=== PATIENT | female | born 1975 | race Caucasian/White ===

== ENCOUNTER 2019-04-06 08:23 | Outpatient (REF) | payer BC, SELFPAY ==
[2019-04-06 21:04] LABS: Calculated LDL 103 mg/dL (<100); Cholesterol 164 mg/dL (<200); Glucose 94 mg/dL (74-106); HDL Cholesterol 52 mg/dL (40-60); Triglyceride 47 mg/dL (<150)
== END 2019-04-06 08:43 ==
LOC: NCHCN 08:23
PROVIDERS: PCP Physician Assistant Medical; Visit Provider Nurse Practitioner Family
DX: Z13.1 Encounter for screening for diabetes mellitus (principal); Z13.220 Encounter for screening for lipoid disorders
CPT/HCPCS: 80061; 82947

== ENCOUNTER 2019-04-25 09:39 | Outpatient (REF) | payer BC, SELFPAY ==
--- NOTE | 2019-04-25 09:25 | PAPFT_PTH ---
PATIENT: Kathy Kong LOC: [facility]#:[id number] AGE/SX: 43/F ROOM: RE04/25/[address]: Loretta Gallegos : 1975 BED: DIS: 04/25/2019 SPEC #: [id number] RECD: 04/26/19 12:53 STATUS: SIOBHAN REJacinto #: [id number] MAURY: 04/25/19 09:[address]: Loretta Gallegos DEPT: [facility] Cytology RECD BY: Marzena Day ENTERED: 04/26/19 12:53 SP TYPE: PAPFT OTHR DR: Atif Barber Tissues: 1 - CX/ENDOCX FOR PAP SMEARS Procedures: PAP THIN PREP/UVM Screening HPV DNA PROBE Comments: [id number]
== END 2019-04-25 09:59 ==
LOC: NCHCN 09:39
PROVIDERS: PCP Internal Medicine; Visit Provider Nurse Practitioner Family
DX: Z12.4 Encounter for screening for malignant neoplasm of cervix (principal); Z01.419 Encounter for gynecological examination (general) (routine) without abnormal findings; Z11.51 Encounter for screening for human papillomavirus (HPV)
CPT/HCPCS: 88142; 87624

== ENCOUNTER 2020-12-17 13:21 | Outpatient (REF) | payer BC, SELFPAY ==
[2020-12-17 19:51] LABS: Bilirubin Negative (Negative); Blood Trace-intact (Negative); Clarity Clear (Clear); Glucose Negative (Negative); Ketones Negative (Negative); Leukocyte Esterase Negative (Negative); Nitrite Negative (Negative); Urobilinogen 0.2 EU/dL (Up TO 0.2)
[2020-12-17 20:01] LABS: Bacteria Negative HPF (Negative); C & S Indicated? No; Crystals Negative HPF (Negative); Epithelial Cells Few HPF (Negative); Mucus Negative (Negative); RBC 0-2 HPF (0-2); WBC Negative HPF (0-5)
== END 2020-12-17 13:22 | disposition home or self-care (01) ==
LOC: NCHCN 13:21
PROVIDERS: PCP Internal Medicine; Visit Provider Nurse Practitioner Family
DX: R30.0 Dysuria (principal); N89.8 Other specified noninflammatory disorders of vagina
CPT/HCPCS: 81003; 81015; 87480; 87510; 87660

== ENCOUNTER 2022-07-04 08:17 | Day surgery (SDC) | payer BC, SELFPAY ==
--- NOTE | 2022-07-03 19:58 | PDOC.DSDIS_ITS ---
Date of service: 07/04/22 Time of Service: 08:47 Discharge Plan Disposition Patient Disposition: Home Condition: Good Discharge Details Reason For Visit: colon scope/colon cancer screening Attending Provider: Opal Godinez Primary Care Provider: Atif Barber Home Meds and New Rx's Prescriptions: Continued lorazepam 0.5 mg tablet 0.5 mg PO BID PRN Discontinued polyethylene glycol 3350 17 gram/dose powder 238 g PO ONCE Qty: 238 0RF Rx Instructions: take per colonoscopy instructions bisacodyl [Dulcolax (bisacodyl)] 5 mg tablet,delayed release (DR/EC) 5 mg PO ONCE Qty: 4 0RF Rx Instructions: take per colonoscopy instructions Discharge Instructions Additional Instructions: DSU Colonoscopy Post- Op Instructions Instructions for Everyone who is given Anesthesia: For your safety, please do the following for the next twenty-four (24) hours: *Do Not operate a motor vehicle (car, truck, motorcycle, etc.) *Do Not drink alcoholic beverages or use any recreational drugs for the first 24 hours or while taking pain medications. The medications in your body may have a reaction that can be dangerous. *Do Not make any important decisions or sign any important papers. Findings: minor diveritcula otherwise normal Follow up: Repeat in 10 yrs time 1. No lifting over 20 pounds or strenuous activity for the first 24 hours after your procedure. After 24 hours there are no restrictions on your activity but you may feel fatigued for a few days. 2. After you arrive home you may have a light meal and return to your normal diet as you can tolerate it without feeling sick to your stomach. 3. You may have a bloated, gaseous feeling in your belly (abdomen) after a colonoscopy. Passing gas and belching will help. Walking or lying down on your left side with your knees flexed may relieve the discomfort. Call the office at [phone] (Office) or [phone] (Hospital) right away if you notice any of the following: a.Vomiting of blood or ?coffee ground stools?. b.Rectal bleeding 1Tbsp, blood clots or continuous bleeding. c.Severe belly (abdominal) pain. d.A hard distended belly (abdomen) and an inability to pass gas. 4. Please don?t expect to have a normal BM (bowel movement) for 2-3 days after your procedure. 5. If there are questions regarding the findings of your procedure, please contact your doctor 6. If you are unable to contact your doctor with a problem, contact the hospital at [phone]. 7. Continue all your regular medications unless directed otherwise. I understand the above instructions and have no questions. Signature of Patient or Adult Escort Name of Responsible Adult Escort Signature of Nurse Date/Time Activity:: see above Diet:: see above Discharge Orders Discharge Orders: Discharge Order (Routine); Ordered 07/04/22 Ordered By: Opal Godinez DS: Diagnosis Discharge Diagnosis (1) S/P lumbar microdiscectomy: (2) Screening for malignant neoplasm of colon performed: Status: Acute Asessment and Plan: The patient is seen and examined after their colonoscopy.? The patient has been able to pass gas.? They are not having abdominal pain.? They have been able to tolerate liquids and a snack.? They do not have any nausea or vomiting.? They are not having any chest pain or shortness of breath.??? They are not having any rectal bleeding..? Their vital signs have been stable-see nursing notes. We discussed findings during their colonoscopy, and any biopsies that were done/polyps that were removed. The patient will be sent a letter with any biopsy results, and when to repeat the colonoscopy.-see discharge instructions. Patient was given explicit instructions to follow-up regarding colonoscopy-refer to discharge instructions.? We reviewed resumption of medications. Patient verbalized understanding and discharged in stable and satisfactory condition- See nursing notes. (3) Diverticula of colon: Status: Acute
--- NOTE | 2022-07-04 08:17 | W.ANESPRE ---
General Info Date of Service Date Performed: 07/04/22 Height: 5 ft 5 in Weight: 68.663 kg Body Mass Index (BMI): 25.2 Surgical Procedure: Operation Date: 07/04/22 09:20 Proposed Procedure Side Surgeon p Colonoscopy Opal Godinez DO Meds Allergies and Home Medications Allergies Allergy/AdvReac Type Severity Reaction Status Date / Time codeine Allergy Severe Verified 07/04/22 08:34 Home Medication Medication Instructions Recorded lorazepam 0.5 mg tablet 0.5 mg PO BID PRN 11/27/21 Current Visit Medications: Current Medications Generic Name Dose Route Start Last Admin Trade Name Freq PRN Reason Stop Dose Admin Hyoscyamine Sulfate 0.125 mg 07/04/22 07:57 Hyoscyamine 0.125 Mg Sl/Oral/Chew SL DIRECTED PRN Ringer's Solution 1,000 mls @ 80 mls/hr 07/04/22 06:00 IV 07/04/22 23:59 INFUSION TASH IV Miscellaneous Supplies 1 each 07/04/22 06:00 Iv Access IV 07/04/22 23:59 DIRECTED TASH Ondansetron HCl 4 mg 07/04/22 07:57 Ondansetron 4 Mg/2 Ml Vial IVP Q4H PRN PRN Nausea / Vomiting Sodium Chloride 0 ml 07/04/22 06:00 Normal Saline Flush 10 Ml Syr IV 07/04/22 23:59 PRN PRN Sodium Chloride 0 ml 07/04/22 06:00 Normal Saline 10 Ml Vial IJ 07/04/22 23:59 DIRECTED PRN Sterile Water 0 ml 07/04/22 06:00 Water,Injection,Sterile 10 Ml Vial IJ 07/04/22 23:59 DIRECTED PRN PFSH Active Problems Active Problems: Problem Status Onset Code Screening for malignant neoplasm of colon performed Z12.11 Anxiety F41.9 Dysuria R30.0 Hearing loss H91.90 Medical History Medical History (Updated 07/03/22 @ 19:59 by Opal Godinez DO) Family history of breast cancer Hypoglycemia Premenstrual syndrome Surgical History Surgical History (Updated 07/03/22 @ 19:59 by Opal Godinez DO) S/P lumbar microdiscectomy 03/24 at Vital Signs and Lab Results Lab Results Blood Type / Crossmatch: No Data to Display Complete Blood Count: No Data to Display Complete Metabolic Panel: No Data to Display Liver Function Panel: No Data to Display Coagulation Panel: No Data to Display Cardiac Panel: No Data to Display Arterial Blood Gas: No Data to Display Venous Blood Gas: No Data to Display Pancreas Panel: No Data to Display Thyroid Panel: No Data to Display Infectious Disease: No Data to Display Blood Cultures: No Data to Display Toxicology Panel: No Data to Display Panel: No Data to Display Anesthesia Assessment and Plan Anesthesia History Personal History: No History of Anesthesia Complications Family History: No Family History of Anesthesia Complications Exercise Tolerance Exercise Tolerance: Metabolic Equivalents>4 Pertinent Negatives Pertinent Negatives: No Symptoms of GERD, No Major Cardiovascular Symptoms or Complaints, No Major Pulmonary Symptoms or Complaints and No History of CVA/TIA Cardiac & Pulmonary Exam Cardiac Exam: Normal S1/S2 Heart Sounds Pulmonary Exam: Clear Bilateral Breath Sounds Implantable Cardiac Device Does patient have a Pacemaker or an ICD?: No Airway Exam Known Difficult Airway: No Mallampati Class: 2 Mouth Opening: Normal (> 3cm) Thyromental Distance: Greater than 3 cm Neck Range of Motion: Full ROM Neck Circumference: Normal Teeth Condition: Normal Dentition ASA Classification ASA Score: ASA 2 Emergency Case?: No NPO Status NPO Status: NPO Clears >2 hours, Solids >8 hours Status Status: Negative HCG Anesthesia Plan Resuscitation Status: Full Code Anesthesia Technique: General Anesthesia Airway Planned: Natural Airway Monitors Used: Standard Monitors
[2022-07-04 08:27] VITALS: BP 127/78; PULSE 79; RESP 17; TEMP 36.6; O2SAT 99
[2022-07-04] MEDS: Lactated Ringers 1,000 ML 80 ML IV (08:43)
--- NOTE | 2022-07-04 08:47 | W.COLOREPORT ---
Date of service: 07/04/22 Time of Service: 08:47 Colonoscopy Report Date of procedure: 07/04/22 Pre-op diagnosis general: CRC screening Post-op diagnosis procedure note: other (Very few small diverticula confined to the sigmoid colon) Surgeon: Opal Goidnez Anesthesia Type: General:No Airway Estimated blood loss (mL): 0 Pathology: none sent Complications: None Disposition: same day Prep: Miralax/Dulcolax Retraction Time: 22 Procedure Description: After informed consent was obtained the patient was taken to the procedure room and placed in a left decubitous position. Monitors were applied and a time out was done. The patients name, date of , procedure, allergies to medications and metal in their body was reviewed. The patient was then sedated. Once sedated and comfortable a rectal exam was done. External exam was normal. Internal exam revealed a normal sphincter tone and no palpable masses. The scope was then introduced and retrofelexed. No internal hemorrhoids were identified. The scope was then advanced to the cecum without BBPS 2 in all segments for total of 6 difficulty. The TI and appendiceal orifice were identified. The prep was . The scope was then slowly retracted over 22 minutes back into the rectum. There are no polyps visualized today. There are a few small scattered diverticula in the sigmoid colon. There is no signs of active bleeding or infection. The mucosa is pink and healthy with a normal vascular pattern. The scope was removed and the patient was woken up and taken back to Same day surgery in stable condition. The patient tolerated the procedure well and there were no immediate complications. Follow up: The patient should follow up in 10 years unless they develop changes in bowel habits or other new gastrointestinal complaints.
[2022-07-04 09:08] VITALS: BMI 25.2
[2022-07-04 09:34] VITALS: BP 121/76; PULSE 62; RESP 16; TEMP 36.7; O2SAT 99
[2022-07-04 10:01] VITALS: BP 120/74; PULSE 57; RESP 16; TEMP 36.5; O2SAT 100
--- NOTE | 2022-07-04 10:23 | W.ANESPOSTOP ---
Postoperative Evaluation Date, Time and Location Date Performed: 07/04/22 Time Performed: Patient Location: Day Surgery Unit Vital Signs Most Recent Imported Vital Signs: Most Recent Vital Signs Temp Pulse Resp BP Pulse Ox 36.5 C 57 L 16 120/74 100 07/04/22 10:01 07/04/22 10:01 07/04/22 10:01 07/04/22 10:07/04/22 10:01 Pain Score Most Recent Pain Score: Most Recent Pain Score Pain Level 0 07/04/22 10:01 Assessment Mental Status: Awake (Alert & Oriented to Patient Baseline) Airway and Respiratory Function: Patent airway with normal (patient baseline) respiratory exam Cardiovascular Function: Hemodynamically Stable Hydration Status: Adequately Hydrated Nausea & Vomiting: No Nausea or Vomiting Pain: Pt. Denies Any Pain Peripheral Nerve Block: Patient did not receive a nerve block
== END 2022-07-04 10:35 | disposition home or self-care (01) ==
PROVIDERS: PCP Internal Medicine; Visit Provider Surgery
PROC: 0DJD8ZZ Inspection of Lower Intestinal Tract, Via Natural or Artificial Opening Endoscopic (ICD-10-PCS; CPT 45378; principal; 2022-07-04 09:15)
DX: Z12.11 Encounter for screening for malignant neoplasm of colon; K57.30 Diverticulosis of large intestine without perforation or abscess without bleeding
CPT/HCPCS: 45378; 81025

== ENCOUNTER 2022-07-22 15:55 | Outpatient (REF) | payer BC, SELFPAY ==
[2022-07-22 18:56] LABS: Absolute Basophil Count 0.04 10^3/uL (0.0-0.2); Absolute Eosinophil Count 0.04 10^3/uL (0.0-0.7); Absolute Lymphocyte Count 1.19 10^3/uL (1.2-3.4); Absolute Monocyte Count 0.34 10^3/uL (0.1-0.8); Absolute Neutrophil Count 2.94 10^3/uL (1.2-6.7); Basophils % 0.9; Eosinophils % 0.9; HCT 37.8 % (36.0-46.0); HGB 12.6 g/dL (11.2-15.7); Lymphocytes % 26.2; MCH 30.8 pg (27.0-33.0); MCHC 33.3 % (32.0-36.0); MCV 92 fL (80-95); MPV 11.4 fL (8.0-11.0); Monocytes % 7.5; Neutrophils % 64.5; Platelet Count 251 10^3/uL (130-400); RBC 4.09 10^6/uL (3.93-5.22); RDW 13.5 % (11.7-14.6); RDW-SD 46.2 fL; WBC 4.55 10^3/uL (4.4-10.8)
[2022-07-22 19:16] LABS: Anion Gap 6.4 mmol/L (3-11); BUN 15 mg/dL (7-18); CO2 29.6 mmol/L (21.0-32.0); CREATININE 0.7 mg/dL (0.55-1.02); Calcium 9.3 mg/dL (8.5-10.1); Chloride 105 mmol/L (98-107); Estimated GFR 106.62 (mL/min/1.73m2); Glucose 99 mg/dL (74-106); Potassium 4.5 mmol/L (3.5-5.1); Sodium 141 mmol/L (136-145)
== END 2022-07-22 15:56 | disposition home or self-care (01) ==
LOC: NCHCN 15:55
PROVIDERS: PCP Internal Medicine; Visit Provider Nurse Practitioner Family
DX: F41.9 Anxiety disorder, unspecified (principal); N92.0 Excessive and frequent menstruation with regular cycle
CPT/HCPCS: 80048; 84443; 85025

== ENCOUNTER 2024-01-20 09:00 | Outpatient (REF) | payer BC, SELFPAY ==
[2024-01-20 20:35] LABS: Calculated LDL 110 mg/dL (<100); Cholesterol 195 mg/dL (<200); HDL Cholesterol 76 mg/dL (40-60); Triglyceride 45 mg/dL (<150)
== END 2024-01-20 09:01 | disposition home or self-care (01) ==
LOC: NCHCN 09:00
PROVIDERS: PCP Internal Medicine; Visit Provider Nurse Practitioner Family
DX: Z13.220 Encounter for screening for lipoid disorders (principal)
CPT/HCPCS: 80061

== ENCOUNTER 2024-06-21 16:37 | Outpatient (REF) | payer BC, SELFPAY ==
[2024-06-21 19:25] LABS: TSH 1.22 uIU/mL (0.36-3.74)
== END 2024-06-21 16:38 | disposition home or self-care (01) ==
LOC: NCHCN 16:37
PROVIDERS: PCP Internal Medicine; Visit Provider Nurse Practitioner Family
DX: R63.5 Abnormal weight gain (principal)
CPT/HCPCS: 84443